=== PATIENT | female | born 1980 | race Caucasian/White ===

== ENCOUNTER 2019-01-17 00:01 | Inpatient (IN) ==
[2019-01-17] MEDS ORDERED: DEXTROSE 5%-LACTATED RINGERS 1,000 ML IV PRN (06:08)
[2019-01-17] MEDS ORDERED: ONDANSETRON 4 MG TAB.RAPDIS PO PRN (06:08)
[2019-01-17] MEDS ORDERED: OXYTOCIN/DEXTROSE 5%-WATER 30 UNITS/500 ML BAG IV ONE ×2 (06:08→15:58)
[2019-01-17] MEDS ORDERED: RINGER'S SOLUTION,LACTATED 1,000 ML IV ONE (06:08)
[2019-01-17 07:31] LABS: Cocaine Ur Negative (NEGATIVE); Urine Barbiturate Negative (NEGATIVE); Urine Benzodiazepines Negative (NEGATIVE); Urine Opiates Negative (NEGATIVE); Urine PCP Negative (NEGATIVE); Urine THC Negative (NEGATIVE)
--- NOTE | 2019-01-17 11:35 | HP ---
Chief Complaint - Chief Complaint Date of Service: 01/17/19 Time of Service: 11:31 Chief Complaint: induction of labor for AMA History of Present Illness: 38 yo at 39 weeks here for induction of labor for AMA and recurrent SAB. 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 Rh positive Rubella immune GBS negative. Medical History (Updated 01/17/19 @ 11:35 by Jesus Pedro DO) Screening for depression (Ruled-out) Encounter to establish care with new doctor (Acute) HSV-1 infection (Acute) History of recurrent , currently (Chronic) Anxiety and depression (Inactive) BMI 38.0-38.9,adult (Chronic) Advanced maternal age affecting , antepartum (Acute) Abnormal uterine bleeding Onset Date: Unknown , spontaneous Onset Date: Unknown x8 Advanced maternal age (AMA), 40 years or greater Onset Date: 2017 Anxiety Onset Date: Unknown Carpal tunnel syndrome Onset Date: Unknown bilateral Depression Onset Date: 03/09/15 Diabetes mellitus, type II Onset Date: 03/09/15 pre-diabetic prior to gastic bypass surgery Glucose intolerance Onset Date: Unknown Migraine Onset Date: 03/09/15 Morbid obesity Onset Date: Unknown Oligohydramnios Onset Date: Unknown Ovarian cyst Onset Date: Unknown Onset Date: Unknown Recurrent cold sores Onset Date: Unknown Simple endometrial hyperplasia Onset Date: 10/27/14 Suicide attempt Onset Date: Unknown [place] teeth removed Onset Date: Unknown Surgical History: Surgical History (Updated 01/17/19 @ 11:35 by Jesus Pedro DO) History of gastric bypass (Chronic) H/O gastric bypass Onset Date: 08/25/15 H/O lithotripsy Onset Date: Unknown History of appendectomy Onset Date: 2006 open-during History of carpal tunnel release of both wrists Onset Date: 2008 History of colposcopy Onset Date: Unknown History of cryosurgery Onset Date: Unknown cervix History of dilation and curettage Onset Date: 03/23/15 08/17/15,10/27/14, 03/23/15 Hx of cholecystectomy Onset Date: Unknown Hx of tonsillectomy Onset Date: Unknown Status post hysteroscopy Onset Date: 03/23/15 08/17/15,10/27/14, 03/23/15 Marc Family History: Family History (Updated 06/13/18 @ 13:50 by Tank Acosta RN) Mother Migraine Brain bleed Father Heart disease Bicuspid valve instead of a tricuspid valve Brother Kidney failure Autoimmune disorder Daughter Sickle Cell Trait Carrier Son Hemihypertrophy Left sided Social History: (Last Reviewed 01/17/19 @ 11:35 by Jesus Pedro DO) Social History: adopted: No care home: No Marital status: household members: spouse, children number of children: 3 current occupational status: unemployed current occupation: homemaker current occupational exposures/hazards: No Highest education level completed: some college, no degree Sexually Active: Yes Service: No Tobacco: Smoking Status: Former smoker Alcohol: alcohol intake: current alcohol intake frequency: a few times a month details: No alcohol since + UPT Substance Use: substance use type: does not use Dietary Habits: caffeine: Yes Type: coffee Exercise: frequency: 5-6 times per week Hailey/Buddhist: agree to transfusion: Yes Review Of Systems (GEN) - Review of Systems Generalized/Overall Review: Present: No Symptoms Reported EENTM: Present: No Symptoms Reported Respiratory: Present: No Symptoms Reported Cardiac: Present: No Symptoms Reported Abdominal: Present: No Symptoms Reported Genitourinary: Present: No Symptoms Reported Musculoskeletal: Present: No Symptoms Reported Neurological: Present: No Symptoms Reported Skin: Present: No Symptoms Reported Endocrine: Present: No Symptoms Reported Immunizations: IMMUNIZATION HX Immunizations Up to Date Yes Allergies/Adverse Reactions: Allergies Allergy/AdvReac Type Severity Reaction Status Date / Time codeine Allergy Severe Anaphylaxis Verified 01/13/19 10:11 pineapple Allergy Severe Anaphylaxis Verified 01/13/19 10:11 adhesive AdvReac Mild ADHESIVE Verified 01/13/19 10:11 TAPE CAUSES BLISTERS metformin AdvReac Mild Diarrhea Verified 01/13/19 10:11 morphine AdvReac Mild Vomiting Verified 01/13/19 10:11 pioglitazone HCl [From Actos] AdvReac Mild FACIAL RASH Verified 01/13/19 10:11 propranolol HCl AdvReac Mild MEMORY LOSS Verified 01/13/19 10:11 [From Inderal LA] acetaminophen [From Tylenol] AdvReac causes Verified 01/13/19 10:11 elevated liver enzymes Home Medications: HOME MEDICATIONS Calcium Carb, Citrate/Vit D3 [Calcium + D3 ER Tablet] 3 ea PO DAILY 06/13/17 [Last Taken 01/16/19] Cyanocobalamin (Vitamin B-12) [Vitamin B12] 2,500 mcg PO DAILY 06/13/17 [Last Taken 01/16/19] Ferrous Sulfate 325 mg PO DAILY 06/13/17 [Last Taken 01/16/19] Vitamin B Complex 1 ea PO DAILY 06/13/17 [Last Taken 01/16/19] Ascorbic Acid [Vitamin C] 500 mg PO DAILY 07/22/17 [Last Taken 01/16/19] ergocalciferol (vitamin D2) 50,000 unit capsule 50,000 unit PO QWEEK 11/16/17 [Last Taken 01/12/19] vits 90-ferrous fumarate 9 mg iron-folic acid 500 mcg tablet 1 tab PO BID tab 11/16/17 [Last Taken 01/16/19] thiamine HCl (vitamin B1) 100 mg tablet 100 mg PO DAILY 07/15/18 [Last Taken 01/16/19] aspirin 81 mg chewable tablet 81 mg PO DAILY #1 tab 07/16/18 [Last Taken 01/16/19] hydrocortisone 2.5 % topical cream 1 applic TP BID #30 g 10/21/18 [Last Taken 01/16/19] valacyclovir 1 gram tablet 1,000 mg PO DAILY #30 tab 12/12/18 [Last Taken 01/16/19] Exam - Exam Constitutional: Present: Alert, Oriented x3, Cooperative, No distress ENT Exam: Present: hearing grossly normal Breasts: Present: Exam deferred Respiratory: Present: lungs clear, no respiratory distress Cardiovascular/Chest: Present: regular rate, rhythm, no edema Abdomen: Present: soft, nontender, no rebound tenderness, other - gravid /Rectal: Present: Other - cervix 3-4/70/-3 Extremity: Present: no calf tenderness. Absent: lower extremity edema Skin Exam: Present: normal color, warm/dry, no cyanosis Neurologic: Present: alert, normal mood/affect, oriented x 3 Appearance: Present: appropriate appearance, appropriate insight Eye contact: Present: cooperative, good eye contact Thoughts: Present: normal thought pattern, normal mood /affect Diagnostic Studies: Laboratory Results Negative (NEGATIVE) 01/17/19 07:00 Negative (NEGATIVE) 01/17/19 07:00 Ur Phencyclidine Scrn Negative (NEGATIVE) 01/17/19 07:00 Urine Amphetamine Negative (NEGATIVE) 01/17/19 07:00 U Benzodiazepines Scrn Negative (NEGATIVE) 01/17/19 07:00 Negative (NEGATIVE) 01/17/19 07:00 Negative (NEGATIVE) 01/17/19 07:00 Assessment/Plan - Assessment/Plan (1) Advanced maternal age affecting , antepartum Assessment: Admit for pitocin induction of labor. Epidural PRN. Problem: Acute (2) History of recurrent , currently Problem: Chronic (3) History of gastric bypass Problem: Chronic (4) HSV-1 infection Problem: Acute (5) BMI 38.0-38.9,adult Problem: Chronic
--- NOTE | 2019-01-17 11:37 | PN ---
Progess Note - Interim Date: 01/17/19 Time: 11:35 Narrative: 01/17/19 11:35 Patient rating contractions as mild. Vital signs stable. Pitocin at 3 mu/min. FHT: 135 baseline, reassuring contractions q 2-3 min Cervix: 3-4/70/-3, AROM-clear, IUPC and FSE placed due to difficulty monitoring baby and contractions due to maternal habitus Impression: Intrauterine at 39 weeks in Labor induction of labor for advanced maternal age, recurrent SAB. Plan: Continue present plan 01/17/19 11:43
[2019-01-17] MEDS ORDERED: ONDANSETRON HCL/PF 2 MG/ML VIAL IV PRN (12:01)
[2019-01-17] MEDS ORDERED: BUPIVACAINE HCL/0.9 % NACL/PF 250 ML EP PRN (12:01)
[2019-01-17] MEDS ORDERED: NALOXONE HCL 1 MG/1 ML SYRG IV PRN (12:01)
[2019-01-17] MEDS ORDERED: fentaNYL CITRATE/PF 50 MCG/ML AMPUL IT SCH (12:15)
--- NOTE | 2019-01-17 12:56 | ANES ---
Anesthesia Pre Procedure Eval HOME MEDICATIONS Calcium Carb, Citrate/Vit D3 [Calcium + D3 ER Tablet] 3 ea PO DAILY 06/13/17 [Last Taken 01/16/19] Cyanocobalamin (Vitamin B-12) [Vitamin B12] 2,500 mcg PO DAILY 06/13/17 [Last Taken 01/16/19] Ferrous Sulfate 325 mg PO DAILY 06/13/17 [Last Taken 01/16/19] Vitamin B Complex 1 ea PO DAILY 06/13/17 [Last Taken 01/16/19] Ascorbic Acid [Vitamin C] 500 mg PO DAILY 07/22/17 [Last Taken 01/16/19] ergocalciferol (vitamin D2) 50,000 unit capsule 50,000 unit PO QWEEK 11/16/17 [Last Taken 01/12/19] vits 90-ferrous fumarate 9 mg iron-folic acid 500 mcg tablet 1 tab PO BID tab 11/16/17 [Last Taken 01/16/19] thiamine HCl (vitamin B1) 100 mg tablet 100 mg PO DAILY 07/15/18 [Last Taken 01/16/19] aspirin 81 mg chewable tablet 81 mg PO DAILY #1 tab 07/16/18 [Last Taken 01/16/19] hydrocortisone 2.5 % topical cream 1 applic TP BID #30 g 10/21/18 [Last Taken 01/16/19] valacyclovir 1 gram tablet 1,000 mg PO DAILY #30 tab 12/12/18 [Last Taken 01/16/19] Allergies/Adverse Reactions: Allergies Allergy/AdvReac Type Severity Reaction Status Date / Time codeine Allergy Severe Anaphylaxis Verified 01/13/19 10:11 pineapple Allergy Severe Anaphylaxis Verified 01/13/19 10:11 adhesive AdvReac Mild ADHESIVE Verified 01/13/19 10:11 TAPE CAUSES BLISTERS metformin AdvReac Mild Diarrhea Verified 01/13/19 10:11 morphine AdvReac Mild Vomiting Verified 01/13/19 10:11 pioglitazone HCl [From Actos] AdvReac Mild FACIAL RASH Verified 01/13/19 10:11 propranolol HCl AdvReac Mild MEMORY LOSS Verified 01/13/19 10:11 [From Inderal LA] acetaminophen [From Tylenol] AdvReac causes Verified 01/13/19 10:11 elevated liver enzymes - Planned Procedure Planned Procedure: medical induction, AMA Medication List Reviewed:: Yes Allergies Verified: Yes Medical History (Updated 01/17/19 @ 11:35 by Jesus Pedro DO) Screening for depression (Ruled-out) Encounter to establish care with new doctor (Acute) HSV-1 infection (Acute) History of recurrent , currently (Chronic) Anxiety and depression (Inactive) BMI 38.0-38.9,adult (Chronic) Advanced maternal age affecting , antepartum (Acute) Abnormal uterine bleeding Onset Date: Unknown , spontaneous Onset Date: Unknown x8 Advanced maternal age (AMA), 40 years or greater Onset Date: 2017 Anxiety Onset Date: Unknown Carpal tunnel syndrome Onset Date: Unknown bilateral Depression Onset Date: 03/09/15 Diabetes mellitus, type II Onset Date: 03/09/15 pre-diabetic prior to gastic bypass surgery Glucose intolerance Onset Date: Unknown Migraine Onset Date: 03/09/15 Morbid obesity Onset Date: Unknown Oligohydramnios Onset Date: Unknown Ovarian cyst Onset Date: Unknown Onset Date: Unknown Recurrent cold sores Onset Date: Unknown Simple endometrial hyperplasia Onset Date: 10/27/14 Suicide attempt Onset Date: Unknown [place] teeth removed Onset Date: Unknown Surgical History (Updated 01/17/19 @ 11:35 by Jesus Pedro DO) History of gastric bypass (Chronic) H/O gastric bypass Onset Date: 08/25/15 H/O lithotripsy Onset Date: Unknown History of appendectomy Onset Date: 2006 open-during History of carpal tunnel release of both wrists Onset Date: 2008 History of colposcopy Onset Date: Unknown History of cryosurgery Onset Date: Unknown cervix History of dilation and curettage Onset Date: 03/23/15 08/17/15,10/27/14, 03/23/15 Hx of cholecystectomy Onset Date: Unknown Hx of tonsillectomy Onset Date: Unknown Status post hysteroscopy Onset Date: 03/23/15 08/17/15,10/27/14, 03/23/15 [place] Family History (Updated 06/13/18 @ 13:50 by Tank Acosta RN) Mother Migraine Brain bleed Father Heart disease Bicuspid valve instead of a tricuspid valve Brother Kidney failure Autoimmune disorder Daughter Sickle Cell Trait Carrier Son Hemihypertrophy Left sided - Family Anesthesia History Family History:: no untoward family reactions to anesthesia, no familial bleeding tendencies, no family history of clotting disorders, no family history of premature - Airway/Neck/Teeth Within Normal Limits:: Yes Teeth Condition: intact Neck Exam: full range of motion Mallampatti Score: 2 Thyromental (T-M) distance: > 6 cm Mandibulo Hyoid distance: > 3 cm - Respiratory Respiratory Physical: lungs clear Smoking Status: Former smoker Sleep Apnea currently treated: No Sleep Apnea by current assessment: No - Cardiovascular Tolerate Activity: Fair Heart Sounds: S1 & S2, Regular - Anesthesia Assessment and Plan ASA Class: PS, II, E Anesthesia Type Plan: Epidural - CSE for labor analgesia
[2019-01-17] MEDS ORDERED: LIDOCAINE HCL/EPINEPHRINE 20 ML VIAL IJ ONE (13:00)
[2019-01-17] MEDS ORDERED: LIDOCAINE HCL/EPINEPHRINE 20 ML VIAL ONE (13:03)
--- NOTE | 2019-01-17 13:25 | ANES ---
Post Anesthesia Discharge - Transfer of Care Transfer of Care handoff given to nurse: Yes - Discharge from PACU Discharge from PACU when meets criteria: Yes - Comfortable p procedure
--- NOTE | 2019-01-17 13:37 | ANES ---
Post Anesthesia Assessment - Vital Signs Airway Patency: Normal - Mental Status Level Of Consciousness: Awake, Alert, Appropriate - Pain Level Pain Score: 0 - N/V Assessment Nausea/Vomiting Presence: None Dehydration:: No - Additional Notes Comments:: Relates no pain at this time and epidural "feels even".
[2019-01-17] MEDS ORDERED: LIDOCAINE HCL 20 ML VIAL IJ ONE (13:44)
--- NOTE | 2019-01-17 14:07 | ANES ---
Anesthesia Procedure Note Procedure Note: ANESTHESIA PROCEDURE NOTE Date of Procedure: [01/17/2019 Time of procedure: 1300. Performed by: LOGAN Stover CRNA, MSN Auto Technician Mechanic: Judith Guzman RN. Preprocedure diagnosis: Active labor, labor pain. Post procedure diagnosis: Same. Procedure:Epidural for labor analgesia L3-4. Indications: Labor pain. Findings: See below. Details of the procedure: The patient was placed on the side of the bed in sitting positionand prepped with DuraPrep then draped in a sterile fashion. Lidocaine 1% was infiltrated to the skin and subcutaneous tissues at the level of the[] interspace. An 18-gauge Touhy needle was used to approach the epidural space with loss of resistance technique. Once loss of resistance was achieved a 27-gauge spinal needle was attempted to pass through the epidural needle without success. The epidural catheter was then threaded approximately 4 cm without resistance and the epidural needle was removed. The catheter was taped in place and after careful aspiration 3 mL of 2% lidocaine with 1-200,000 epinephrine was injected without change in maternal heart rate or sensorium. Since fentanyl was available for the attempted CSE, 100 mcg of fentanyl was injected through the epidural catheter. There was apparent relief of pain relatively quickly. EBL: Minimal. Fluids: N/A. Specimen: N/A. Post procedure condition: The patient tolerated the procedure well with good relief. No complications were noted. Thank you for this consultation. Maciel Crowe CRNA, ARNP, MSN
[2019-01-17] MEDS ORDERED: diphenhydrAMINE HCL 50 MG/ML VIAL IV STA ×2 (14:52→16:17)
--- NOTE | 2019-01-17 15:53 | OR ---
Operative Report - Dictated Report Narrative: Called to evaluate patient for hypotension and repetitive late decelerations. heart tones were 135 with prolonged variable late decelerations down to the 70s which improved but did not resolve with fluid bolus and position changes. Patient was dilated to 7 cm -2 station. While preparations were being made for section, patient was instructed to push; her cervix dilated to complete and a vigorously crying baby girl delivered spontaneously at 1323 on 01/17/2019 with Apgars 7 and 9, weighing 3367 g in MIKE position. No nuchal cord or signs of abruption on the placenta were grossly noted. Cord clamping delayed approximately 1 minute Placenta delivered complete, intact, with three vessel cord Estimated blood loss: 150 mL Anesthesia: Epidural Lacerations: None History for MU History for MU Definition: * The number of deliveries resulting in a live the patient experienced prior to current hospitalization * The previous delivery of live twins or any live multiple gestation is considered one live event. *If primagravida or nulliparous is documented select zero for the number of previous live births. Live Events: Live Events: 3
[2019-01-17] MEDS ORDERED: BISACODYL 10 MG SUPP.RECT RC PRN (15:58)
[2019-01-17] MEDS ORDERED: GLYCERIN/WITCH HAZEL LEAF 40 APPL BOX TP PRN (15:58)
[2019-01-17] MEDS ORDERED: oxyCODONE HCL/ACETAMINOPHEN 1 TAB TABLET PO PRN (15:58)
[2019-01-17] MEDS ORDERED: HYDROCORTISONE 30 APPL TUBE TP PRN (15:58)
[2019-01-17] MEDS ORDERED: SENNOSIDES 8.6 MG TABLET PO PRN (15:58)
[2019-01-17] MEDS ORDERED: BENZOCAINE/MENTHOL 81 SPRAY CAN TP PRN (15:58)
[2019-01-17] MEDS: PRENATAL VITS96/IRON FUM/FOLIC 1 TAB TABLET PO SCH (22:00)
[2019-01-17] MEDS: ACETAMINOPHEN 325 MG TABLET PO PRN (22:05)
[2019-01-17] MEDS: DOCUSATE SODIUM 100 MG CAPSULE PO SCH (22:17)
[2019-01-18] MEDS: ACETAMINOPHEN 325 MG TABLET PO PRN ×3 (05:07→21:08)
--- NOTE | 2019-01-18 10:16 | PN ---
Subjective - Date and Time Seen Date: 01/18/19 Time: 10:14 Objective - Vitals Vitals: Last Vital Signs Temp 36.2 C 01/18/19 08:29 Pulse 69 01/18/19 08:29 Resp 16 01/18/19 08:29 BP 119/76 01/18/19 08:29 Pulse Ox 98 01/18/19 08:29 Patient denies complaints. Fasting blood sugar 76 Lochia wnl abdomen - soft, nontender Uterus -firm, at umbilicus - 1 no calf tenderness Impression: day #1 - s/p spontaneous vaginal delivery. History of type 2 diabetes prior to gastric bypass surgery -screen within normal limits. Plan: Continue routine care Cauti Physician Documentation - Urinary Catheter Management Urethral (Curiel) Date of Insertion: 01/17/19 Time of Insertion: 13:55 Assessment/Plan - Problems/Diagnosis (1) Advanced maternal age affecting , antepartum Problem: Acute (2) History of recurrent , currently Problem: Chronic (3) History of gastric bypass Problem: Chronic (4) HSV-1 infection Problem: Acute (5) BMI 38.0-38.9,adult Problem: Chronic
[2019-01-18] MEDS: DOCUSATE SODIUM 100 MG CAPSULE PO SCH ×2 (11:05→21:05)
[2019-01-18] MEDS: FERROUS SULFATE 325 MG TABLET PO SCH (11:05)
[2019-01-18] MEDS: CALCIUM CARBONATE/VITAMIN D3 1 TAB TABLET PO SCH (11:05)
[2019-01-18] MEDS: PRENATAL VITS96/IRON FUM/FOLIC 1 TAB TABLET PO SCH ×2 (11:06→21:05)
[2019-01-18] MEDS: CYANOCOBALAMIN 1,000 MCG TABLET PO SCH (11:06)
[2019-01-18] MEDS: ASCORBIC ACID 500 MG TABLET PO SCH (11:06)
[2019-01-19 08:05] VITALS: BP 110/75
[2019-01-19] MEDS ORDERED: ERGOCALCIFEROL 50000 UNIT TABLET PO SCH (09:00)
[2019-01-19] MEDS: CALCIUM CARBONATE/VITAMIN D3 1 TAB TABLET PO SCH (10:36)
[2019-01-19] MEDS: FERROUS SULFATE 325 MG TABLET PO SCH (10:36)
[2019-01-19] MEDS: ASCORBIC ACID 500 MG TABLET PO SCH (10:36)
[2019-01-19] MEDS: DOCUSATE SODIUM 100 MG CAPSULE PO SCH (10:37)
[2019-01-19] MEDS: CYANOCOBALAMIN 1,000 MCG TABLET PO SCH (10:37)
[2019-01-19] MEDS: PRENATAL VITS96/IRON FUM/FOLIC 1 TAB TABLET PO SCH (10:37)
[2019-01-19] MEDS: ACETAMINOPHEN 325 MG TABLET PO PRN (10:37)
--- NOTE | 2019-01-20 01:08 | PN ---
Subjective - Date and Time Seen Date: 01/19/19 Time: 09:00 Objective - Vitals Vitals: Last Vital Signs Temp 36.4 C 01/19/19 08:03 Pulse 70 01/19/19 08:03 Resp 16 01/19/19 08:03 BP 110/75 01/19/19 08:03 Pulse Ox 100 01/19/19 08:03 Patient denies complaints. Lochia wnl abdomen - soft, nontender Uterus -firm, at umbilicus - 2 no calf tenderness Impression: day #2 - s/p spontaneous vaginal delivery. Plan: Routine discharge instructions Cauti Physician Documentation - Urinary Catheter Management Urethral (Curiel) Date of Insertion: 01/17/19 Time of Insertion: 13:55 Assessment/Plan - Problems/Diagnosis (1) Advanced maternal age affecting , antepartum Problem: Acute (2) History of recurrent , currently Problem: Chronic (3) History of gastric bypass Problem: Chronic (4) HSV-1 infection Problem: Acute (5) BMI 38.0-38.9,adult Problem: Chronic
--- NOTE | 2019-01-20 05:07 | PATH ---
PHYSICIAN: Jesus Pedro DO LAB#: [id number] SPECIMEN DATE: 01/17/2019 SPECIMEN: Placenta CLINICAL INFORMATION: The patient is a 38-year-old G 12 P3093 who presented at 39 weeks for induction of labor for advanced maternal age and recurrent spontaneous . Maternal history complicated by anxiety, advanced maternal age, recurrent spontaneous , gastric bypass surgery, history of herpes simplex virus (on prophylaxis), history type 2 diabetes (blood sugar checked throughout all within normal limits), morbid obesity. Anal vaginal smear 12/23/2018 negative for group B strep. Patient developed hypotension, repetitive late decelerations, bloody amniotic fluid suspect abruption. Operative findings: Vaginal delivery of a 3367 g girl Apgars 7 and 9. GROSS DESCRIPTION: The specimen is received in a formalin filled container appropriately designated, "placenta". The specimen consists of a 17.1 x 15.1 x 2.5 cm 535 g partially circumvallate placenta with a acentrically attached 45 x 1.1 cm umbilical cord. There is a 6 x 6 cm blood clot adherent to the membranes and abundant blood clot loosely adherent to cotyledons. The remaining bladder membranes are slightly opacified. Cross-sections show beefy red parenchyma with no focal lesions. Maternal cotyledons are intact. surface is slate molina with several small meyers molina plaques measuring up to 0.5 cm. Summary of cassettes : 1 --umbilical cord; 2,3 --center placenta at plaques full-thickness; 4 --marginal placenta; 5 -- membranes; 6 --adherent blood clot to membranes. DIAGNOSIS: INTRAUTERINE CONTENTS, VAGINAL DELIVERY: THIRD TRIMESTER TRI-VASCULAR UMBILICAL CORD 535 GRAM PLACENTA SHOWING: -ACUTE HEMORRHAGE IN EXTRAPLACENTAL MEMBRANES COMMENT: No evidence of chorioamnionitis, villitis or infarction. The extraplacental membrane hemorrhage is suggestive of placental abruption. The plaques on the plate are due to subchorionic fibrin deposition. The findings are communicated to the pediatric and obstetrical clinical team by FAX on 01/20/2019.
== END 2019-01-19 12:00 | disposition home or self-care (01) | DRG 806 ==
LOC: OB 05:58
PROVIDERS: ADMIT Obstetrics & Gynecology; ATTEND Obstetrics & Gynecology
CPT/HCPCS: 59025; 80307; 88307; J2405